=== PATIENT | female | born 1990 | race Caucasian/White ===

== ENCOUNTER → 2022-09-03 | Outpatient (CLI) | payer BC ==
[2022-09-05 15:09] LABS: HPV 16 Negative (Negative); HPV 18 Negative (Negative); HPV OTHER HR TYPES Negative (Negative)
== END | disposition home or self-care (01) ==
LOC: LAB 17:06 → LAB SHORT 17:06
PROVIDERS: Advanced Practice Midwife
DX: Z01.419 Encounter for gynecological examination (general) (routine) without abnormal findings (principal)
CPT/HCPCS: 87624; G0145

== ENCOUNTER → 2024-12-22 | Outpatient (CLI) | payer BC | LOC: LAB 11:07 → LAB SHORT 11:07 | DX: Z33.1 Pregnant state, incidental (principal) | CPT/HCPCS: 84702 ==